=== PATIENT | female | born 1985 | race Caucasian/White ===

== ENCOUNTER 2017-09-12 01:24 | Outpatient (CLI) | payer BC ==
--- NOTE | 2017-09-12 13:53 | MRI ---
MRI THORACIC SPINE WITH AND WITHOUT CONTRAST: Clinical history: Palpable mass. Comparison: None. FINDINGS: There is a fat signal intensity mass of the posterior paraspinus soft tissues overlying the spinus pr ocess of the T12 segment. This finding measures 5.5 cm craniocaudal x 1.3 cm AP x 2.6 cm transverse. Slight internal complexity is demonstrated on precontrast imaging although there is no discernable in ternal enhancement. Finding is most consistent with a mildly complex lipomatous lesion centered withi n the posterior subcutaneous fat. There is no intrinsic cord signal abnormality, pathologic intramedullary enhancement, or expansile co rd lesion. No significant disc degeneration of the thoracic spine. The thoracic spine vertebral lenin s maintain appropriate height, alignment, and marrow signal. There is marrow edema/enhancement of the posterior elements of T7-8, likely related to stress reaction. IMPRESSION: Findings most consistent with a mildly complex lipoma centered within the posterior subcutaneous tiss ues of the lower thoracic spine. No discernable internal enhancement. Marrow edema/enhancement of the posterior elements of T7-8, likely related to stress reaction. Corel ate clinically. POS: ROLDAN
== END 2017-09-12 01:25 | disposition home or self-care (01) ==
LOC: SCSMRI 01:24
PROVIDERS: ATTEND Neurological Surgery
DX: M79.9 Soft tissue disorder, unspecified (principal)
CPT/HCPCS: 72157

== ENCOUNTER 2018-11-05 18:32 | Observation (INO) | payer OTHER ==
[2018-11-05 20:13] LABS: Bilirubin Negative (Negative); Blood, Urine Negative (Negative); Clarity CLEAR (Clear); Glucose, Urine (Dipstick) Negative (Negative); Leukocyte Negative (Negative); Nitrite Negative (Negative); Protein, Urine (Dipstick) Negative (Neg-Trace); Specific Gravity, Urine 1.013 (1.002-1.036); Urobilinogen 0.2 mg/dL (0.2-1.0)
[2018-11-05 20:15] LABS: Bacteria/HPF None Seen HPF (None Seen); Hyaline Casts/LPF 0-3 HYALINE CAST LPF (0-3 Hyaline); RBC/HPF None Seen HPF (0-3); Squamous Epithelial None Seen HPF (0-3); WBC/HPF None Seen HPF (0-3)
[2018-11-05 20:27] LABS: FFN Internal QC Analyzer PASS (PASS); FFN Internal QC Cassette PASS (PASS); Fetal Fibronectin Negative (Negative)
[2018-11-05 20:40] VITALS: BMI 28.2
[2018-11-05] MEDS ORDERED: Lactated Ringer's 2,000 ML IV SCH (21:30)
[2018-11-06] MEDS ORDERED: Ondansetron PF 4 MG/2 ML Vial IVP PRN (00:13)
[2018-11-06] MEDS ORDERED: Lactated Ringer's 1,000 ML IV SCH (00:15)
[2018-11-06] MEDS ORDERED: Zolpidem Tartrate 5 MG TAB PO PRN (00:15)
--- NOTE | 2018-11-06 02:00 | PRG ---
DATE OF SERVICE: 11/06/2018 OB ADMIT OBSERVATION PRIMARY LABORATORY SAMPLER: Iman Guido MD CHIEF COMPLAINT: Abdominal pain. HISTORY OF PRESENT ILLNESS: The patient is a 33-year-old G4, P3 female with an intrauterine at 32 weeks and 2 days, who is presenting to Labor and Delivery after experiencing increasing abdominal pain since about 8 o'clock this morning. The patient rates her pain 5/10 on a 10 point scale and reports that the pain has been intermittent, but persistent throughout the day. The patient does admit she has had diarrhea for the last couple days, having 3-4 bowel movements yesterday. The patient denies any other sick contacts. Denies vaginal bleeding or leakage of fluid. Denies any urinary urgency or frequency, change in discharge. She denies headache, chest pain, shortness of breath, fever, nausea, vomiting, or constipation. She reports diarrhea. Denies any new rashes, hip problems, knee problems, or muscle weakness. The patient denies intercourse in the last several days. PAST MEDICAL HISTORY: Negative. PAST SURGICAL HISTORY: Negative. ALLERGIES: NO KNOWN DRUG ALLERGIES. MEDICATIONS: vitamins. OB LABS: Unavailable at the time of dictation. SOCIAL HISTORY: Denies drug, alcohol, or tobacco use. PHYSICAL EXAMINATION: VITAL SIGNS: Blood pressure 119/70, heart rate of 84, saturating 100% on room air, and temperature 99.2. GENERAL: She appears to be in no acute distress. She is alert and oriented, cooperative, pleasant to interact with. HEAD: Normocephalic, atraumatic. LUNGS: Clear to auscultation bilaterally. HEART: Regular rate and rhythm. ABDOMEN: Soft. EXTREMITIES: Nontender and nonedematous. Cervical exam is 1.5, 0% effacement and -2 station, unchanged after several hours. heart tracing demonstrates the fetus with baseline in the 120s with moderate long-term variability. Positive accelerations. No decelerations. During the monitoring, fetus appeared to have unusual deceleration variables down to the 90s after having a prolonged acceleration up into the 180s. After this, persistent monitoring did not demonstrate a repeat. Tocometer shows some irritability without any consistent pattern, perhaps every 10 minutes. fibronectin was collected and found to be negative. Urinalysis demonstrated ketones greater than 80, negative nitrites, negative leukocyte esterase, negative bacteria. ASSESSMENT AND PLAN: The patient is a 33-year-old female, G4, P3, with an intrauterine at 32 weeks and 2 days, having contractions, has no evidence of urinary tract infection or vaginal infection. Based on her history, she may have some sort of GI upset or gastroenteritis that may be contributing to the contractions. Fetus has an overall category reassuring strip. We do have unusual severe appearing deceleration that cannot be explained. The patient has been admitted to observation for prolonged monitoring and should the patient's contractions worsen, we will re-evaluate her for concerns of labor. However, at this time with essentially closed cervix and apparently infrequent contraction pattern, there is no evidence for steroid administration at this time. The patient will be admitted again to observation. Dr. Guido will be notified in the morning. Job ID: [id number]
[2018-11-06 02:40] VITALS: TEMP 99.2
--- NOTE | 2018-11-06 07:48 | PDOC.LDPN ---
Labor & Delivery Progress Note - Subjective Subjective: comfortable, other (No regular contractions. Good movement. Feels much better after IV fluids.) - Objective Vital signs reviewed and normal: yes FHT: category 1 Plan: other (Patient feels much better after IV hydration. No further contraction regularity. heart rate tracing reviewed. Category 1. No further variable deceleration seen the past several hours. FFN was negative. UA negative. 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 No history of labor with prior pregnancies. Plan to discharge home. Rest and po hydrate today to help recover from recent diarrheal illness. PTL warnings given. Has follow up in one week.)
== END 2018-11-06 08:04 | disposition home health service (06) ==
LOC: L&D/OP 18:32 → L&D 11-06 00:13
PROVIDERS: ADMIT Obstetrics & Gynecology; ATTEND Obstetrics & Gynecology
DX: O99.89 Other specified diseases and conditions complicating pregnancy, childbirth and the puerperium (principal); R10.9 Unspecified abdominal pain; Z3A.32 32 weeks gestation of pregnancy; Z79.899 Other long term (current) drug therapy
CPT/HCPCS: 81001; 82731; 87480; 87510; 87660; 99285; G0378

== ENCOUNTER 2018-12-15 09:14 | Day surgery (SDC) | payer OTHER ==
[2018-12-15 10:01] VITALS: BMI 28.0
--- NOTE | 2018-12-15 10:18 | PDOC.LDHP ---
Labor and Delivery H&P HPI: Patient of Dr Guido CC: irregaular CTX Tiem: [id number] Location: L&D Triage HPI: 33 yo [id number] with EDC 3/4 here for possible CTX. Was 3cm in office last Thrusday. No VB, noLOF, no fevers, no trauma. Good FM. No issues. CTX began last PM at 2100 Review of Systems: complete ROS completed and negative as per HPI Current gestational age (weeks): 37 (6 days) Due date: 12/30/18 Dating criteria: last menstrual period Grav: 5 Para: 3 OB History Details: x 3 Current complications: none Abnormal US findings: No Current medications: pre-francoise vitamins Previous surgical history: none Allergies/Adverse Reactions: Allergies Allergy/AdvReac Type Severity Reaction Status Date / Time No Known Allergies Allergy Verified 12/15/18 09:49 - Physical Exam Vital signs reviewed and normal: yes (112/75 100%O2 96 18) General: NAD Heart: RRR Lungs: CTAB Abdomen: gravid (EFW 6-7#) Extremeties: no edema FHT: category 1 [place] contractions every: irregular every 3-5 - Vaginal Exam cm dilated: 3 (inner os about 1-2) Effacement: 25% Station: -1 - Assessment Latent phase of labor at early term; GBS pos - Plan Plan: observation in L&D (BPs ok. strip reactive, latent phase discussed. No change since last Thrusday. Recheck in 1 hour. Pain meds prn)
--- NOTE | 2018-12-15 11:15 | PDOC.EVN ---
Event Note - Event Note Event Note: Recheck with same exam. BPs stable. Patient states "I know I am in labor". I addressed lack of change and latent phase. She has requested we call [facility] on-call physician for final disposition. Dr Penaloza to be informed of patient status. From a triage perspective, no evidence of active labor at this time.
--- NOTE | 2018-12-15 11:20 | PDOC.EVN ---
Event Note - Event Note Event Note: I discussed the case with Dr Guido. As no cervical change, BPs wnl, BOWI, and FHTs wnl...ok for outpatient follow up.
== END 2018-12-15 13:33 | disposition home health service (06) ==
LOC: L&D/OP 09:14
PROVIDERS: ATTEND Obstetrics & Gynecology
DX: O47.1 False labor at or after 37 completed weeks of gestation (principal); Z3A.37 37 weeks gestation of pregnancy; Z79.899 Other long term (current) drug therapy
CPT/HCPCS: 99283

== ENCOUNTER 2018-12-21 23:06 | Inpatient (IN) | payer OTHER ==
[2018-12-21 23:34] VITALS: BP 125/79; TEMP 97.9; BMI 28.2
[2018-12-21] MEDS ORDERED: Ibuprofen 800 MG TAB PO PRN (23:44)
[2018-12-21] MEDS ORDERED: Ondansetron PF 4 MG/2 ML Vial IVP PRN (23:44)
[2018-12-21] MEDS ORDERED: Promethazine HCl 25 MG/ML VIAL IM PRN (23:44)
[2018-12-21] MEDS ORDERED: HYDROcodone/Acetaminophen 5/325 mg Tablet PO PRN ×2 (23:44)
[2018-12-21] MEDS ORDERED: Lidocaine 1% (PF) 30 ML VIAL SC PRN (23:44)
[2018-12-21] MEDS ORDERED: NS / Oxytocin 40 units/1000ml 1,000 ML IV PRN (23:44)
[2018-12-21] MEDS ORDERED: Penicillin G Potassium 5 MILL.UNITS in Sodium Chloride 0.9% 100 ML IVPB SCH (23:45)
--- NOTE | 2018-12-21 23:49 | PDOC.LDHP ---
Labor and Delivery H&P Chief complaint: contractions, loss of fluid HPI: Patient of Dr mcdonnell Tiem: [id number] Location: L&D HPI: 23 yo at 38 weeks 5 days here with SROM at 2215, irregular CTX. No issues. Good FM, no VB Review of Systems: complete ROS completed and as per HPI Current gestational age (weeks): 38 (5 days) Dating criteria: last menstrual period Grav: 5 Para: 3 OB History Details: x3 Current complications: none Abnormal US findings: No Current medications: none Previous surgical history: none Allergies/Adverse Reactions: Allergies Allergy/AdvReac Type Severity Reaction Status Date / Time No Known Allergies Allergy Verified 12/15/18 09:49 - Physical Exam Vital signs reviewed and normal: yes (125/75 afebrile Pulse 80) General: NAD Heart: RRR Lungs: CTAB Abdomen: gravid Extremeties: no edema FHT: category 1 [place] contractions every: irregular - Vaginal Exam cm dilated: 3 (Clear fluid) Effacement: 75% Station: -1 - Assessment L&D Assessment: term rupture in membranes (Early term at 38 weeks 5 days, GBS positive) - Plan Plan: admit to L&D, labor augmentation if indicated, GBS antibiotic prophylaxis , informed consent obtained, anesthesia consult for pain management, other (Dr Mcdonnell notified of patient's arrival)
[2018-12-22] MEDS ORDERED: Bupivacaine HCl 0.5%/Epinephrine 1:200,000/PF 30 ml Vial ONE (00:01)
[2018-12-22] MEDS ORDERED: ePHEDrine/0.9% NaCl/PF SYRINGE 50 mg/10 ml ONE (00:01)
[2018-12-22] MEDS ORDERED: Lidocaine 2% MPF 10 ML AMP (For Epidural Use) ONE (00:01)
[2018-12-22] MEDS ORDERED: Penicillin G Potassium 5 MILL.UNITS VIAL ONE (00:05)
[2018-12-22 00:12] LABS: Hemoglobin 10.5 g/dL (12.0-16.0); Mean Corpuscular HGB CONC 32.6 g/dL (32.0-36.0); Mean Corpuscular Hemoglobin 27.5 pg (27.0-31.0); Mean Corpuscular Volume 84.4 fL (78.0-98.0); Mean Platelet Volume 6.4 fL (7.4-10.4); Platelet Count 266 thou/uL (130-400); RBC Distribution Width 11.9 % (11.5-14.5); Red Blood Cell (RBC) Count 3.82 mill/uL (4.20-5.40); White Blood Cell (WBC) Count 9.5 thou/uL (4.8-10.8)
[2018-12-22] MEDS ORDERED: Calcium Carbonate 500 MG ChewTAB PO SCH (00:15)
[2018-12-22] MEDS ORDERED: Fentanyl 4 mcg/Bup 0.1% Cadd 100 ML ONE (00:30)
[2018-12-22 00:52] LABS: Syphilis Antibody Nonreactive (Nonreactive); Syphilis Antibody Index 0.02 S/CO (<1.00 Non-Reactive)
[2018-12-22 00:53] LABS: HIV (1/2) Antibody/Antigen Non-Reactive (NonReactive); HIV 1/2 INDEX 0.09 S/CO (<1.00); Hep B Surf Ag Non-Reactive S/CO (NonReactive)
[2018-12-22] MEDS ORDERED: Promethazine HCl 25 MG/ML VIAL IM PRN (01:10)
[2018-12-22] MEDS ORDERED: Lactated Ringer's 500 ML IV PRN (01:10)
[2018-12-22] MEDS ORDERED: Acetaminophen 325 MG TAB PO PRN (01:10)
[2018-12-22] MEDS ORDERED: Ondansetron PF 4 MG/2 ML Vial IVP PRN (01:10)
[2018-12-22] MEDS ORDERED: Eucerin (Mineral Oil/Petrolatum,White) 30 gm Jar TOP PRN (01:10)
[2018-12-22] MEDS ORDERED: Naloxone HCl 0.4 mg/ml Vial IVP PRN ×2 (01:10)
[2018-12-22] MEDS ORDERED: diphenhydrAMINE 50 MG/ML VIAL IVP PRN (01:10)
[2018-12-22] MEDS ORDERED: ePHEDrine/0.9% NaCl/PF SYRINGE 50 mg/10 ml SLOW IVP PRN (01:10)
[2018-12-22] MEDS ORDERED: Fentanyl 4 mcg/Bupivacaine 0.1% Cassette 100 ML EPIDURAL SCH (01:15)
[2018-12-22] MEDS ORDERED: Communication Order-Pharmacy FS SCH (01:15)
[2018-12-22] MEDS: Lactated Ringer's 1,000 ML IV SCH ×2 (01:18)
[2018-12-22] MEDS: Penicillin G 2.5 MILL.units 2.5 MILL.UNITS in Premix Bag 1 BAG IVPB SCH ×2 (01:27→03:54)
[2018-12-22] MEDS ORDERED: Lactated Ringer's 1,000 ML IV SCH (01:30)
[2018-12-22] MEDS ORDERED: Famotidine 20 MG TAB PO SCH (02:00)
--- NOTE | 2018-12-22 05:00 | PDOC.OPDEL ---
OB Operative/Delivery Note Delivery Dr/Surgeon: Hay Pre-Delivery Diagnosis: active labor Procedure/Post Delivery Dx: spontaneous vaginal delivery Weeks gestation: 38 Anesthesia: epidural - Findings A Sex: male - 1 min: 8 - 5 min: 9 - Additional Findings/Plan Placenta delivered: spontaneous Repaired Obstetrical Laceration: none Estimated blood loss: 200ml Post delivery plan: routine recovery
[2018-12-22] MEDS ORDERED: Benzocaine/Menthol 20-0.5% 60 ML CAN TOP PRN (05:01)
[2018-12-22] MEDS ORDERED: Lanolin Ointment 7 GM TUBE TOP PRN (05:01)
[2018-12-22] MEDS ORDERED: traMADol HCl 50 MG TAB PO PRN (05:01)
[2018-12-22] MEDS ORDERED: Milk Of Magnesia 30 ML UDCUP PO PRN (05:01)
[2018-12-22] MEDS ORDERED: Zolpidem Tartrate 5 MG TAB PO PRN (05:01)
[2018-12-22] MEDS ORDERED: Preparation H Ointment 28 GM TUBE PR PRN (05:01)
[2018-12-22] MEDS ORDERED: diphenhydrAMINE 25 MG CAP PO PRN (05:01)
[2018-12-22] MEDS ORDERED: Misoprostol 200 MCG TAB VAG PRN (05:01)
[2018-12-22] MEDS ORDERED: Bisacodyl 10 MG SUPP PR PRN (05:01)
[2018-12-22] MEDS ORDERED: NS / Oxytocin 40 units/1000ml 1,000 ML IV SCH (05:15)
[2018-12-22] MEDS ORDERED: Ferrous Sulfate 325 MG TAB PO SCH (08:00)
[2018-12-22] MEDS ORDERED: Adacel (T-DAP) 0.5 ML SYRINGE IM ONE (09:00)
[2018-12-22] MEDS ORDERED: Docusate Calcium (SURFAK) 240 MG CAP PO SCH (09:00)
[2018-12-22] MEDS ORDERED: Prenatal Vitamin 1 TAB PO SCH (09:00)
== END 2018-12-22 08:02 | disposition home or self-care (01) | DRG 807 ==
LOC: L&D/OP 23:06 → L&D 23:56
PROVIDERS: ADMIT Obstetrics & Gynecology; ATTEND Obstetrics & Gynecology
PROC: 10E0XZZ Delivery of Products of Conception, External Approach (ICD-10-PCS; principal; 2018-12-21)
DX: O99.824 Streptococcus B carrier state complicating childbirth (principal); Z37.0 Single live birth; Z3A.38 38 weeks gestation of pregnancy
CPT/HCPCS: 36415; 51702; 85027; 86780; 86850; 86900; 86901; 87340; 87389; 99285; J0670; J2001; J2540

== ENCOUNTER 2020-05-30 22:45 | Observation (INO) | payer OTHER ==
[2020-05-30 23:14] LABS: Hemoglobin 13.9 g/dL (12.0-16.0); Mean Corpuscular HGB CONC 34.1 g/dL (32.0-36.0); Mean Corpuscular Hemoglobin 31.4 pg (27.0-31.0); Mean Corpuscular Volume 92.1 fL (78.0-98.0); Mean Platelet Volume 6.6 fL (7.4-10.4); Platelet Count 290 thou/uL (130-400); RBC Distribution Width 11.4 % (11.5-14.5); Red Blood Cell (RBC) Count 4.41 mill/uL (4.20-5.40); White Blood Cell (WBC) Count 7.7 thou/uL (4.8-10.8)
[2020-05-30 23:30] LABS: Bilirubin Negative (Negative); Blood, Urine Negative (Negative); Clarity Clear (Clear); Glucose, Urine (Dipstick) Normal (Negative); Ketone, Urine Negative (Negative); Leukocyte Negative Leu/uL (Negative); Nitrite Negative (Negative); Protein, Urine (Dipstick) Negative (Neg-Trace); Specific Gravity, Urine 1.005 (1.002-1.036); Urobilinogen Normal mg/dL (Less than 2)
[2020-05-30 23:32] LABS: ALT (SGPT) 28 U/L (8-55); AST (SGOT) 28 U/L (5-34); Acetaminophen Less than 6.0 mcg/mL (10.0-30.0); Albumin 4.7 g/dL (3.5-5.0); Alcohol 147 mg/dL (Less than 10); Alkaline Phosphatase 52 U/L (40-110); Anion Gap 11 mmol/L (10-20); BUN (Urea Nitrogen) 11 mg/dL (7.0-18.7); Bilirubin, Total 0.5 mg/dL (0.2-1.2); Calc. Creatinine Clearance 0 mL/min (70-130); Calcium 9.3 mg/dL (7.8-10.44); Carbon Dioxide 24 mmol/L (22-29); Chloride 107 mmol/L (98-107); Estimated GFR-MDRD 72; Globulin 2.9 g/dL (2.4-3.5); Glucose 97 mg/dL (70-105); Potassium 3.6 mmol/L (3.5-5.1); Protein, Total 7.6 g/dL (6.0-8.3); Salicylate Less than 8.0 mg/dL (15.0-30.0); Sodium 138 mmol/L (136-145)
[2020-05-30 23:34] LABS: Pregnancy Test - Urine (BHCG) Negative (Negative); Pregu Control Background? CLEAR/WHITE (CLR/WHITE); Pregu Control Bar Appear? YES (CONTROL BAR); Specific Gravity 1.005 (1.002-1.036)
[2020-05-30 23:39] LABS: Band 5 % (5-11); Eosinophils 1 % (0-10); Lymphocytes 39 % (21-51); MDiff Complete? YES; Monocytes 5 % (0-10); Neutrophil 31 % (42-75); Platelet Morphology Comment Appears Adequate; Polychromasia SLIGHT = 2-3 cells (100X) (0-2/hpf); Reactive Lymphocytes 19 % (0-10)
[2020-05-30 23:43] LABS: Benzodiazepine Screen Detected (NotDetected); Medtox Reader # READER 4
[2020-05-30 23:44] LABS: Amphetamine Not Detected (NotDetected); Barbiturates Screen Not Detected (NotDetected); Cocaine Metabolite Screen Not Detected (NotDetected); Medtox Control Line Valid? VALID (VALID); Methadone Not Detected (NotDetected); Methamphetamine Not Detected (NotDetected); Opiate Screen Not Detected (NotDetected); Oxycodone Screen Not Detected (NotDetected); Phencyclidine (PCP) Not Detected (NotDetected); THC/Cannabinoid Screen Not Detected (NotDetected); Tricyclic Screen Not Detected (NotDetected)
[2020-05-31] MEDS ORDERED: Acetaminophen 650 MG Suppository PR PRN (00:47)
[2020-05-31] MEDS ORDERED: Acetaminophen 325 MG TAB PO PRN (00:47)
[2020-05-31] MEDS ORDERED: Calcium Carbonate 500 MG ChewTAB PO PRN (00:47)
--- NOTE | 2020-05-31 00:51 | PDOC.HHP ---
Hospitalist HPI - History of Present Illness History of Present Illness: Case of an 34y/o female with pmhx of anxiety and depression who comes to hospital after a suicide attempt with alprazolam and fluoxetine. Apparently patient was on her usual state of health until today at about 10:25 PM the night when he noticed his had taken an unknow amount of her pills. apparently she was has had some suicidal ideations in the past but no attempts, claims she recently has been really stress about sending her child back to school who has a condition that makes him immunosuppresed. center for posion control was called and refers only for observation of patient and monitoring of her respiratory status. during my evaluation patient is more awake than at arrival moving all extremities spontaneously but is very somnolent and does not follow commands Hospitalist ROS - Review of Systems ROS unobtainable: due to mental status Hospitalist History - Past Surgical History Other Surgical History: unable to asses due to mental status - Family History Other Family History: unable to asses due to mental status - Social History Other Social History: unable to asses due to mental status - Exam General Appearance: NAD, awake alert General - other findings: somnolent Eye: PERRL, anicteric sclera ENT: normocephalic atraumatic, no oropharyngeal lesions Neck: supple, symmetric, no JVD Heart: RRR, no murmur, no gallops Respiratory: CTAB, no wheezes, no rales Gastrointestinal: soft, non-tender, non-distended Extremities: no cyanosis, no clubbing, no edema Skin: normal turgor, no lesions, no rashes Neurological: cranial nerve grossly intact, no focal deficits Musculoskeletal: normal tone, normal strength Psychiatric: somnolent Hospitalist Results - Labs Result Diagrams: 05/30/20 22:57 05/30/20 22:57 Lab results: WBC 7.7 thou/uL (4.8-10.8) 05/30/20 22:57 Hgb 13.9 g/dL (12.0-16.0) 05/30/20 22:57 Hct 40.6 % (36.0-47.0) 05/30/20 22:57 MCV 92.1 fL (78.0-98.0) 05/30/20 22:57 Plt Count 290 thou/uL (130-400) 05/30/20 22:57 Band Neuts % (Manual) 5 % (5-11) 05/30/20 22:57 Sodium 138 mmol/L (136-145) 05/30/20 22:57 Potassium 3.6 mmol/L (3.5-5.1) 05/30/20 22:57 Chloride 107 mmol/L (98-107) 05/30/20 22:57 Carbon Dioxide 24 mmol/L (22-29) 05/30/20 22:57 BUN 11 mg/dL (7.0-18.7) 05/30/20 22:57 Creatinine 0.89 mg/dL (0.6-1.1) 05/30/20 22:57 Glucose 97 mg/dL (70-105) 05/30/20 22:57 Calcium 9.3 mg/dL (7.8-10.44) 05/30/20 22:57 Total Bilirubin 0.5 mg/dL (0.2-1.2) 05/30/20 22:57 AST 28 U/L (5-34) 05/30/20 22:57 ALT 28 U/L (8-55) 05/30/20 22:57 Alkaline Phosphatase 52 U/L (40-110) 05/30/20 22:57 Serum Total Protein 7.6 g/dL (6.0-8.3) 05/30/20 22:57 Albumin 4.7 g/dL (3.5-5.0) 05/30/20 22:57 Urine Ketones Negative mg/dL (Negative) 05/30/20 23:00 Urine Blood Negative (Negative) 05/30/20 23:00 Urine Nitrite Negative (Negative) 05/30/20 23:00 Ur Leukocyte Esterase Negative Quynh/uL (Negative) 05/30/20 23:00 Hospitalist H&P A/P - Problem (1) Suicide attempt by benzodiazepine overdose Code(s): T42.4X2A - POISONING BY BENZODIAZEPINES, INTENTIONAL SELF-HARM, INIT Status: Acute (2) Acute depression Code(s): F32.9 - MAJOR DEPRESSIVE DISORDER, SINGLE EPISODE, UNSPECIFIED Status : Acute - Plan Plan: 34y/o female with the stated pmhx who presents after a suicide attempt after ingestion her alprazolam and fluoxetine prescription pills suicided attempt - monitor respiratory status - ivfs - transfer to psychiatric facility when medically stable
[2020-05-31] MEDS ORDERED: Sodium Chloride 0.9% 1,000 ML IV SCH (01:00)
[2020-05-31] MEDS ORDERED: Enoxaparin Sodium 40 MG/0.4 ML SYRINGE SC SCH (09:00)
[2020-05-31] MEDS ORDERED: Enoxaparin Sodium 40 MG/0.4 ML SYRINGE ONE (09:58)
--- NOTE | 2020-05-31 11:16 | PDOC.EVN ---
Event Note - Event Note Event Note: awake, alert. star diet. COVID SCREEN pending. [facility] consult
[2020-05-31 11:56] LABS: SARS-CoV-2 MS2 Positive; SARS-CoV-2 N Gene Negative; SARS-CoV-2 S Gene Negative; SARS-CoV-2 by NAA Not Detected (NotDetected); SARS-CoV-2 orf1ab Negative
[2020-05-31 13:23] VITALS: BMI 22.7
[2020-05-31 18:19] VITALS: BP 103/61; TEMP 98.7
--- NOTE | 2020-05-31 19:22 | DIS ---
DATE OF ADMISSION: 05/31/2020 DATE OF DISCHARGE: 05/31/2020 PRIMARY CARE PROVIDER: No primary care provider, sees Dr. Teodora Barrera and Dr. Ancelmo Barrera for psychiatric care. DISPOSITION: Discharged home. FINAL DIAGNOSES: Suicide gesture, overdose with benzodiazepines, and major depressive disorder. DISCHARGE MEDICINES: Same as her home medicines; 1. Xanax 0.5 mg at bedtime p.r.n. 2. Prozac 40 mg a day. ALLERGIES: NO KNOWN DRUG ALLERGIES. CODE STATUS: Full. PENDING AT TIME OF DISCHARGE: Nothing. HOSPITAL COURSE: The patient was brought to the hospital after some family stress. noticed his had taken unknown number of pills and drug alcohol, which she has not done in a while. She was somnolent here. She was placed on IV fluids and suicide watch. Laboratory, CBC were unremarkable. Comprehensive metabolic profile unremarkable. Alcohol 147. Benzodiazepine was positive. COVID negative. The patient was monitored, I saw her this morning. She was awake, alert, oriented, and cooperative, I had cleared her medically cleared. MR saw her. After extensive discussion with her, they came up with a safety plan. Recommended a discharge safety plan included the things I have shown in my discharges including holding medicines and taking responsibility for her. MR with daily followup for several weeks and then, tapering off. The patient to see her psychiatrist in followup as soon as possible. As I said before, the patient is alert, oriented, calm, and appropriate at the time of discharge. Job ID: [id number]
== END 2020-05-31 21:01 | disposition home or self-care (01) ==
LOC: ERS 22:45 → ERHOLD 05-31 00:46 → 2NO 05-31 13:11
PROVIDERS: ADMIT Internal Medicine; ATTEND Internal Medicine
DX: T42.4X2A Poisoning by benzodiazepines, intentional self-harm, initial encounter (principal); T43.222A Poisoning by selective serotonin reuptake inhibitors, intentional self-harm, initial encounter; R40.0 Somnolence; F32.9 Major depressive disorder, single episode, unspecified; F41.9 Anxiety disorder, unspecified; Z79.899 Other long term (current) drug therapy; Z20.828 Contact with and (suspected) exposure to other viral communicable diseases
CPT/HCPCS: 51701; 80053; 80306; 80307; 81003; 81025; 85025; 87635; 96372; G0378; J1650; U0003

== ENCOUNTER 2020-09-02 14:26 | Outpatient (CLI) | payer OTHER ==
--- NOTE | 2020-09-02 15:32 | MMO ---
Bilateral MAMMO Bilat Diag DDI+MIKEY. CLINICAL HISTORY: Patient is 34 years old and is seen for diagnostic exam. The patient has the following family history of breast cancer: paternal grandmother, malignant (generic). The patient has no personal history of cancer. VIEWS: The views performed were: bilateral craniocaudal with tomosynthesis; bilateral mediolateral oblique with tomosynthesis; and bilateral mediolateral with tomosynthesis. FILMS COMPARED: The present examination has been compared to a prior imaging study performed at [facility] on 09/02/2020. This study has been interpreted with the assistance of computer-aided detection. MAMMOGRAM FINDINGS: There are scattered fibroglandular densities. No mammographic abnormality is evident in the region of palpable concern. Sonography demonstrates benign findings. There are no suspicious masses, suspicious calcifications, or areas of architectural distortion. IMPRESSION: THERE IS NO MAMMOGRAPHIC EVIDENCE OF MALIGNANCY. THE RESULTS OF THIS EXAM WERE SENT TO THE PATIENT. ACR BI-RADS Category 2 - Benign finding MAMMOGRAPHY NOTE: 1. A negative mammogram report should not delay a biopsy if a dominant of clinically suspicious mass is present. 2. Approximately 10% to 15% of breast cancers are not detected by mammography. 3. Adenosis and dense breasts may obscure an underlying neoplasm. Reported by: CHANDRIKA HATHAWAY MD Electonically Signed: [id number]
--- NOTE | 2020-09-02 15:32 | ULT ---
EXAM: US Breast Limited Rt PROVIDED CLINICAL HISTORY: Palpable right breast mass COMPARISON: Diagnostic mammogram 09/02/2020 FINDINGS: Limited sonographic interrogation was performed at the 10:00 position of the right breast in the nicole on of palpable concern. There is a oval, smoothly marginated, nonshadowing echogenic mass measuring approximately 9 mm in the region of palpable concern. Given the echogenic nature of this mass and lac k of mammographic correlate, this is compatible with lipoma or fat necrosis. IMPRESSION: Palpable finding corresponds to a benign echogenic mass, compatible with lipoma or fat necrosis. BI-RADS 2 -- benign findings
== END 2020-09-02 14:27 | disposition home or self-care (01) ==
LOC: BICMAMMO 14:26
PROVIDERS: ATTEND Obstetrics & Gynecology
DX: N63.10 Unspecified lump in the right breast, unspecified quadrant (principal)
CPT/HCPCS: 77066; G0279

== ENCOUNTER 2022-08-18 19:00 | Inpatient (IN) | payer OTHER ==
[2022-08-18] MEDS ORDERED: EPINEPHrine 1 MG/10 ML Abboject SYRINGE ONE ×2 (19:04→19:06)
[2022-08-18] MEDS ORDERED: NOREPINEPHRINE 8 MG/250 ML-D5W 250 ML ONE (19:05)
[2022-08-18] MEDS ORDERED: Calcium Chloride 1 GM/10 ML Abboject SYRINGE ONE (19:06)
[2022-08-18 19:20] LABS: Actual Bicarbonate (HCO3a) 16.8 mEq/L (22-28); Analyzer IN Cardio ER; Base Excess (BEa) -7.7 mEq/L (-2.0 to +3.0); CO2 Tension 30.8 mmHg (35.0-45.0); Calcium, Ionized (arterial) 0.97 mmol/L (1.12-1.30); Carboxyhemoglobin (COHb) 0.1 gm% (0.0-3.0); Hemoglobin (Hb) 10.1 g/dL (12.0-16.0); O2 Tension (PaO2), arterial 299.1 mmHg (80.0-100.0); pH, Arterial 7.36 (7.35-7.45)
[2022-08-18 19:27] LABS: #Eosinphils 0.1 thou/uL (0.0-0.7); #Lymphocytes 1.8 thou/uL (1.20-3.40); #Monocytes 0.3 thou/uL (0.11-0.59); #Neutrophils 3.8 thou/uL (1.40-6.50); %Basophils 0.6 % (0.0-1.0); %Lymphocytes 29.6 % (21.0-51.0); %Monocytes 4.3 % (0.0-10.0); %Neutrophils 64.4 % (42.0-75.0); Hemoglobin 10.4 g/dL (12.0-16.0); Mean Corpuscular Hemoglobin 32.4 pg (27.0-31.0); Mean Corpuscular Volume 98.2 fL (78.0-98.0); Mean Platelet Volume 6.6 fL (7.4-10.4); Platelet Count 221 thou/uL (130-400); RBC Distribution Width 11.9 % (11.5-14.5); White Blood Cell (WBC) Count 5.9 thou/uL (4.8-10.8)
[2022-08-18 19:36] LABS: BHCG - Serum Negative (NEGATIVE); Pregs Control Background? CLEAR/WHITE (CLR/WHITE); Pregs Control Bar Appear? YES (CONTROL BAR)
[2022-08-18 19:43] LABS: ALT (SGPT) 9 U/L (8-55); AST (SGOT) 19 U/L (5-34); Albumin 3.2 g/dL (3.5-5.0); Alcohol 127 mg/dL (Less than 10); Alkaline Phosphatase 28 U/L (40-110); Anion Gap 12 mmol/L (10-20); BUN (Urea Nitrogen) 5 mg/dL (7.0-18.7); Bilirubin, Total 0.3 mg/dL (0.2-1.2); Calc. Creatinine Clearance 0 mL/min (70-130); Calcium 7.1 mg/dL (7.8-10.44); Carbon Dioxide 17 mmol/L (22-29); Chloride 117 mmol/L (98-107); Estimated GFR 114; Globulin 1.8 g/dL (2.4-3.5); Glucose 88 mg/dL (70-105); Potassium 3.3 mmol/L (3.5-5.1); Sodium 143 mmol/L (136-145)
[2022-08-18 19:46] LABS: INR-International Normal Ratio 1.2; PTT 29.5 sec (22.9-36.1); Prothrombin Time 14.8 sec (12.0-14.7)
[2022-08-18] MEDS ORDERED: Potassium Chloride 40 MEQ in Premix Bag 1 BAG IVPB SCH (20:15)
[2022-08-18 20:20] LABS: Magnesium 1.6 mg/dL (1.6-2.6)
[2022-08-18 20:21] LABS: Acetaminophen Less than 10.0 mcg/mL (10.0-30.0); Alcohol 126 mg/dL (Less than 10); Salicylate Less than 8.0 mg/dL (15.0-30.0)
[2022-08-18 20:30] LABS: Bilirubin Negative (Negative); Blood, Urine Negative (Negative); Clarity Clear (Clear); Glucose, Urine (Dipstick) Normal (Negative); Ketone, Urine Negative (Negative); Leukocyte Negative Leu/uL (Negative); Nitrite Negative (Negative); Protein, Urine (Dipstick) Negative (Neg-Trace); Specific Gravity, Urine 1.004 (1.002-1.036); Urobilinogen Normal mg/dL (Less than 2); pH, Urine 5.5 (5.0-9.0)
[2022-08-18 20:33] LABS: Amphetamine Not Detected (NotDetected); Barbiturates Screen Not Detected (NotDetected); Benzodiazepine Screen Detected (NotDetected); Cocaine Metabolite Screen Not Detected (NotDetected); Methadone Not Detected (NotDetected); Methamphetamine Not Detected (NotDetected); Opiate Screen Not Detected (NotDetected); Oxycodone Screen Not Detected (NotDetected); Phencyclidine (PCP) Not Detected (NotDetected); THC/Cannabinoid Screen Not Detected (NotDetected); Tricyclic Screen Detected (NotDetected)
[2022-08-18] MEDS ORDERED: Magnesium 2 GM/50 ML BAG (IN WATER) ONE (20:46)
[2022-08-18] MEDS ORDERED: Ondansetron PF 4 MG/2 ML Vial IVP PRN (21:58)
[2022-08-18] MEDS ORDERED: Acetaminophen 325 MG TAB PER TUBE PRN (21:58)
[2022-08-18] MEDS ORDERED: Electrolyte Replacement Protocol 1 EACH IVPB PRN (22:01)
[2022-08-18] MEDS ORDERED: NOREPINEPHRINE 8 MG/250 ML-D5W 250 ML IVPB PRN (22:01)
[2022-08-18] MEDS ORDERED: Morphine 4 MG/ML VIAL SLOW IVP PRN (22:15)
[2022-08-18] MEDS ORDERED: Fentanyl CADD 100 ML IV SCH (22:15)
[2022-08-18] MEDS ORDERED: DISCONTINUE PREVIOUS NARCOTIC PAIN MEDICATIONS AND BENZODIAZEPINES FS SCH (22:15)
[2022-08-18] MEDS ORDERED: Fentanyl BOLUS 250 ML IVPB PRN (22:15)
[2022-08-18] MEDS ORDERED: Ventilator Sedation Protocol 1 EACH FS SCH (22:15)
[2022-08-18] MEDS ORDERED: Propofol BOLUS 1,000 MG/100 ML VIAL IV PRN (22:15)
[2022-08-18 23:11] LABS: Anion Gap 11 mmol/L (10-20); BUN (Urea Nitrogen) 6 mg/dL (7.0-18.7); Calc. Creatinine Clearance 0 mL/min (70-130); Calcium 9.1 mg/dL (7.8-10.44); Carbon Dioxide 18 mmol/L (22-29); Chloride 117 mmol/L (98-107); Estimated GFR 98; Glucose 160 mg/dL (70-105); Sodium 141 mmol/L (136-145)
[2022-08-18 23:48] LABS: Puncture Site RRA
[2022-08-18] MEDS ORDERED: Sodium Bicarbonate 150 MEQ in Dextrose 5% in Water 1,000 ML IV SCH (23:59)
[2022-08-19 04:32] LABS: #Eosinphils 0.1 thou/uL (0.0-0.7); #Monocytes 0.5 thou/uL (0.11-0.59); #Neutrophils 6.9 thou/uL (1.40-6.50); %Basophils 0.2 % (0.0-1.0); %Eosinophils 0.6 % (0.0-10.0); %Lymphocytes 21.1 % (21.0-51.0); %Monocytes 5.4 % (0.0-10.0); %Neutrophils 72.8 % (42.0-75.0); Mean Corpuscular HGB CONC 32.9 g/dL (32.0-36.0); Mean Corpuscular Hemoglobin 32.2 pg (27.0-31.0); Mean Corpuscular Volume 97.8 fL (78.0-98.0); Mean Platelet Volume 6.9 fL (7.4-10.4); Platelet Count 280 thou/uL (130-400); Red Blood Cell (RBC) Count 3.72 mill/uL (4.20-5.40); White Blood Cell (WBC) Count 9.5 thou/uL (4.8-10.8)
[2022-08-19 05:00] LABS: ALT (SGPT) 18 U/L (8-55); AST (SGOT) 17 U/L (5-34); Albumin 3.4 g/dL (3.5-5.0); Alkaline Phosphatase 40 U/L (40-110); Anion Gap 12 mmol/L (10-20); BUN (Urea Nitrogen) 6 mg/dL (7.0-18.7); Bilirubin, Total 0.6 mg/dL (0.2-1.2); Calc. Creatinine Clearance 0 mL/min (70-130); Calcium 8.4 mg/dL (7.8-10.44); Carbon Dioxide 22 mmol/L (22-29); Chloride 113 mmol/L (98-107); Estimated GFR 79; Globulin 2.1 g/dL (2.4-3.5); Glucose 175 mg/dL (70-105); Potassium 4.5 mmol/L (3.5-5.1); Protein, Total 5.5 g/dL (6.0-8.3); Sodium 142 mmol/L (136-145)
[2022-08-19 05:35] LABS: Magnesium 1.9 mg/dL (1.6-2.6)
[2022-08-19] MEDS: Sodium Chloride 0.9% 1,000 ML IV SCH ×3 (06:18→20:32)
[2022-08-19 07:16] LABS: Actual Bicarbonate (HCO3a) 24.7 mEq/L (22-28); Base Excess (BEa) 1.1 mEq/L (-2.0 to +3.0); CO2 Tension 35.9 mmHg (35.0-45.0); Calcium, Ionized (arterial) 1.18 mmol/L (1.12-1.30); Carboxyhemoglobin (COHb) 0.3 gm% (0.0-3.0); Hemoglobin (Hb) 12.6 g/dL (12.0-16.0); O2 Tension (PaO2), arterial 104.8 mmHg (80.0-100.0); Potassium - ABG Lab 4.29 mmol/L (3.70-5.30); pH, Arterial 7.46 (7.35-7.45)
[2022-08-19 07:21] LABS: ALV-art Gradient 64.225 mmHg (0-20); Puncture Site LRA
[2022-08-19] MEDS: Midazolam HCl 2 mg/2 ml Vial SLOW IVP PRN ×2 (07:24→08:50)
[2022-08-19] MEDS: Propofol 1,000 MG/100 ML VIAL IV PRN (08:11)
[2022-08-19] MEDS ORDERED: Midazolam HCl 2 mg/2 ml Vial SLOW IVP PRN (08:50)
[2022-08-19] MEDS ORDERED: FLU VACC QS2022-23(6MOS UP)/PF 60 MCG/0.5 ML SYRINGE IM ONE (09:00)
[2022-08-19 09:29] LABS: Lactic Acid 1.3 mmol/L (0.5-2.2)
[2022-08-19] MEDS: levETIRAcetam 500 MG/5 ML VIAL SLOW IVP SCH ×2 (09:54→20:33)
[2022-08-19] MEDS: Famotidine 20 MG TAB PER TUBE SCH ×2 (09:55→20:33)
[2022-08-19] MEDS: Enoxaparin Sodium 40 MG/0.4 ML SYRINGE SC SCH (10:32)
[2022-08-19] MEDS ORDERED: Lorazepam 2 MG/ML VIAL SLOW IVP PRN (11:20)
[2022-08-19 17:04] LABS: Lactic Acid 1.1 mmol/L (0.5-2.2)
[2022-08-20] MEDS: Propofol 1,000 MG/100 ML VIAL IV PRN (03:58)
[2022-08-20] MEDS: Sodium Chloride 0.9% 1,000 ML IV SCH ×5 (04:06→20:30)
[2022-08-20 04:07] LABS: #Eosinphils 0.1 thou/uL (0.0-0.7); #Lymphocytes 1.4 thou/uL (1.20-3.40); #Monocytes 0.6 thou/uL (0.11-0.59); #Neutrophils 7.3 thou/uL (1.40-6.50); %Basophils 0.3 % (0.0-1.0); %Eosinophils 0.9 % (0.0-10.0); %Monocytes 6.6 % (0.0-10.0); %Neutrophils 77.2 % (42.0-75.0); Hemoglobin 10.5 g/dL (12.0-16.0); Mean Corpuscular HGB CONC 32.7 g/dL (32.0-36.0); Mean Corpuscular Volume 97.9 fL (78.0-98.0); Mean Platelet Volume 6.8 fL (7.4-10.4); Platelet Count 178 thou/uL (130-400); RBC Distribution Width 11.7 % (11.5-14.5); Red Blood Cell (RBC) Count 3.28 mill/uL (4.20-5.40); White Blood Cell (WBC) Count 9.5 thou/uL (4.8-10.8)
[2022-08-20 04:16] LABS: Lactic Acid 0.8 mmol/L (0.5-2.2)
[2022-08-20 04:32] LABS: ALT (SGPT) 30 U/L (8-55); AST (SGOT) 31 U/L (5-34); Albumin 3.2 g/dL (3.5-5.0); Alkaline Phosphatase 37 U/L (40-110); Anion Gap 8 mmol/L (10-20); BUN (Urea Nitrogen) 8 mg/dL (7.0-18.7); Bilirubin, Total 1.2 mg/dL (0.2-1.2); CK (CPK) 94 U/L (29-168); Calc. Creatinine Clearance 0 mL/min (70-130); Carbon Dioxide 24 mmol/L (22-29); Chloride 110 mmol/L (98-107); Estimated GFR 95; Globulin 1.8 g/dL (2.4-3.5); Glucose 80 mg/dL (70-105); Magnesium 1.6 mg/dL (1.6-2.6); Potassium 3.6 mmol/L (3.5-5.1); Sodium 138 mmol/L (136-145)
[2022-08-20 07:12] LABS: Actual Bicarbonate (HCO3a) 21.7 mEq/L (22-28); Base Excess (BEa) -1.1 mEq/L (-2.0 to +3.0); CO2 Tension 29.8 mmHg (35.0-45.0); Carboxyhemoglobin (COHb) 0.2 gm% (0.0-3.0); Hemoglobin (Hb) 10.9 g/dL (12.0-16.0); O2 Tension (PaO2), arterial 131.2 mmHg (80.0-100.0); pH, Arterial 7.48 (7.35-7.45)
[2022-08-20 07:23] LABS: Puncture Site LRA
[2022-08-20] MEDS ORDERED: Magnesium 2 GM/50 ML(in water) 2 GM in Premix Bag 1 BAG IVPB SCH (08:00)
[2022-08-20] MEDS: Famotidine 20 MG TAB PER TUBE SCH ×2 (09:26→20:26)
[2022-08-20] MEDS: Enoxaparin Sodium 40 MG/0.4 ML SYRINGE SC SCH (09:26)
[2022-08-20] MEDS: levETIRAcetam 500 MG/5 ML VIAL SLOW IVP SCH ×2 (09:30→20:26)
[2022-08-20] MEDS: Ibuprofen 200 MG TAB PO PRN ×2 (10:46→20:51)
[2022-08-20 15:26] LABS: Lactic Acid 0.7 mmol/L (0.5-2.2)
[2022-08-20] MEDS ORDERED: Chloraseptic Spray 180 ml Bottle PO PRN (17:59)
[2022-08-20] MEDS ORDERED: Cepastat Lozenges 1 LOZ PO PRN (17:59)
[2022-08-20] MEDS ORDERED: Melatonin 3 MG TAB PO SCH (22:15)
[2022-08-21] MEDS: Ibuprofen 200 MG TAB PO PRN ×2 (04:54→13:34)
[2022-08-21 06:53] LABS: #Eosinphils 0.1 thou/uL (0.0-0.7); #Lymphocytes 0.9 thou/uL (1.20-3.40); #Monocytes 0.6 thou/uL (0.11-0.59); %Basophils 0.2 % (0.0-1.0); %Lymphocytes 9.1 % (21.0-51.0); %Neutrophils 83.7 % (42.0-75.0); Hemoglobin 10.2 g/dL (12.0-16.0); Mean Corpuscular HGB CONC 33.8 g/dL (32.0-36.0); Mean Corpuscular Volume 97.9 fL (78.0-98.0); Mean Platelet Volume 6.4 fL (7.4-10.4); Platelet Count 177 thou/uL (130-400); RBC Distribution Width 11.5 % (11.5-14.5); Red Blood Cell (RBC) Count 3.09 mill/uL (4.20-5.40); White Blood Cell (WBC) Count 9.5 thou/uL (4.8-10.8)
[2022-08-21 07:31] LABS: ALT (SGPT) 40 U/L (8-55); AST (SGOT) 34 U/L (5-34); Albumin 3.4 g/dL (3.5-5.0); Alkaline Phosphatase 65 U/L (40-110); Anion Gap 9 mmol/L (10-20); BUN (Urea Nitrogen) 7 mg/dL (7.0-18.7); CK (CPK) 81 U/L (29-168); Calc. Creatinine Clearance 0 mL/min (70-130); Calcium 8.4 mg/dL (7.8-10.44); Carbon Dioxide 25 mmol/L (22-29); Chloride 112 mmol/L (98-107); Estimated GFR 100; Globulin 2.3 g/dL (2.4-3.5); Glucose 89 mg/dL (70-105); Magnesium 1.7 mg/dL (1.6-2.6); Potassium 3.7 mmol/L (3.5-5.1); Protein, Total 5.7 g/dL (6.0-8.3); Sodium 142 mmol/L (136-145)
[2022-08-21 07:44] LABS: Troponin I Less than 0.010 ng/mL (< 0.028)
[2022-08-21] MEDS: Enoxaparin Sodium 40 MG/0.4 ML SYRINGE SC SCH (08:11)
[2022-08-21] MEDS: Famotidine 20 MG TAB PER TUBE SCH (08:11)
[2022-08-21 11:40] VITALS: BP 129/73; BMI 24.3
[2022-08-21 11:41] VITALS: TEMP 98.6
[2022-08-21] MEDS ORDERED: Magnesium 2 GM/50 ML(in water) 2 GM in Premix Bag 1 BAG IVPB SCH (12:30)
== END 2022-08-21 16:15 | disposition home or self-care (01) | DRG 917 ==
LOC: ERS 19:00 → CCU 21:22 → T4-A 08-20 13:28
PROVIDERS: ADMIT Internal Medicine; ATTEND Family Medicine
PROC: 5A1945Z Respiratory Ventilation, 24-96 Consecutive Hours (ICD-10-PCS; principal; 2022-08-18)
PROC: 3E033XZ Introduction of Vasopressor into Peripheral Vein, Percutaneous Approach (ICD-10-PCS; 2022-08-18)
PROC: 06HY33Z Insertion of Infusion Device into Lower Vein, Percutaneous Approach (ICD-10-PCS; 2022-08-18)
PROC: 0D9670Z Drainage of Stomach with Drainage Device, Via Natural or Artificial Opening (ICD-10-PCS; 2022-08-18)
PROC: 4A10X4Z Monitoring of Central Nervous Electrical Activity, External Approach (ICD-10-PCS; 2022-08-19)
PROC: 4A10X4Z Monitoring of Central Nervous Electrical Activity, External Approach (ICD-10-PCS; 2022-08-21)
DX: T43.592A Poisoning by other antipsychotics and neuroleptics, intentional self-harm, initial encounter (principal); G92.8 Other toxic encephalopathy; J96.01 Acute respiratory failure with hypoxia; R57.8 Other shock; T43.222A Poisoning by selective serotonin reuptake inhibitors, intentional self-harm, initial encounter; T43.292A Poisoning by other antidepressants, intentional self-harm, initial encounter; E03.9 Hypothyroidism, unspecified; F41.9 Anxiety disorder, unspecified; F32.A Depression, unspecified; E87.6 Hypokalemia; F10.929 Alcohol use, unspecified with intoxication, unspecified; R56.9 Unspecified convulsions; Y92.9 Unspecified place or not applicable; Z79.899 Other long term (current) drug therapy
CPT/HCPCS: 36415; 36416; 36556; 36600; 51702; 70450; 71045; 80053; 80306; 80307; 81003; 82550; 82805; 83605; 83735; 84145; 84146; 84484; 84703; 85025; 85610; 85730; 93005; 93010; 94002; 94003; 95816; 95819; 95957; 96361; 96365; 96366; 96367; 96368; 96375; J0171; J1650; J1953; J2060; J2250; J2704; J3475; J3480; J3490; J7050; J7070